=== PATIENT | female | born 1975 | race Hispanic/Latino ===

== ENCOUNTER → 2023-09-10 | Outpatient (CLI) | payer OTHER | END | disposition home or self-care (01) | LOC: SHCH 10:00 | PROVIDERS: ATTEND Internal Medicine Cardiovascular Disease | DX: R01.1 Cardiac murmur, unspecified (principal) | CPT/HCPCS: 93306 ==

== ENCOUNTER 2024-04-06 10:15 | Observation (INO) | payer OTHER ==
[~2024-04-06] VITALS: Ht 157.5 cm; Wt 91.6 kg
[2024-04-06 11:15] VITALS: BP 136/78; PULSE 65; RESP 16
[2024-04-06 11:21] LABS: CREATININE 0.7 mg/dL (0.5-1.0)
[2024-04-06 11:28] LABS: HEMATOCRIT 37.3 % (36-48); MEAN CORPUSCULAR HEMOGLOBIN 30.4 pg (27.0-33.0); MEAN CORPUSCULAR HGB CONC 34.6 g/dL (32.0-36.0); RED BLOOD CELL COUNT(AUTO) 4.24 MIL/uL (4.00-5.50); RED CELL DISTRIBUTION WIDTH 12.3 % (11.0-15.5); WHITE BLOOD COUNT (AUTO) 6.8 K/uL (4.8-10.8)
[2024-04-06] MEDS ORDERED: MAGNESIUM HYDROXIDE 30 ML/UDCUP PO PRN (12:30)
[2024-04-06] MEDS ORDERED: ACETAMINOPHEN 325 MG TAB PO ONE (12:30)
[2024-04-06] MEDS ORDERED: ACETAMINOPHEN WITH CODEINE 1 TAB TAB PO PRN (12:30)
[2024-04-06] MEDS ORDERED: MAG/ALUM/SIMETH 30 ML UDCUP PO PRN (12:30)
[2024-04-06] MEDS ORDERED: ACETAMINOPHEN 325 MG TAB PO PRN (13:00)
[2024-04-06] MEDS: NS-20 MEQ KCL 1000ML 1,000 ML IV SCH (13:47)
[2024-04-06 16:00] VITALS: BP 130/88; PULSE 67; RESP 16
[2024-04-06 19:45] VITALS: O2SAT 96
[2024-04-06] MEDS: ACETAMINOPHEN WITH CODEINE 1 TAB TAB PO PRN (19:45)
[2024-04-06 20:00] VITALS: BP 135/70; PULSE 56; RESP 20
[2024-04-07] VITALS (26 sets, daily range): BP systolic 94–134; BP diastolic 51–76; PULSE 58–89; RESP 13–20; O2SAT 96
[2024-04-07 05:07] LABS: BASOPHILS # (AUTO) 0.02 K/uL (0.00-0.20); BASOPHILS % (AUTO) 0.3 % (0.0-5.0); EOSINOPHILS # (AUTO) 0.32 K/uL (0.00-0.70); EOSINOPHILS % (AUTO) 4.7 % (0.0-8.0); HEMATOCRIT 35.2 % (36-48); IMMATURE GRANULOCYTE ABSOLUTE 0.05 K/uL (0-1); LYMPHOCYTES # (AUTO) 3.2 K/uL (1.0-4.8); LYMPHOCYTES % (AUTO) 46.6 % (21.0-51.0); MEAN CORPUSCULAR HEMOGLOBIN 31.3 pg (27.0-33.0); MEAN CORPUSCULAR HGB CONC 34.1 g/dL (32.0-36.0); MEAN CORPUSCULAR VOLUME 91.9 fL (79-99); MONOCYTES # (AUTO) 0.4 K/uL (0.1-1.0); MONOCYTES % (AUTO) 6.3 % (3.0-13.0); NEUTROPHILS # (AUTO) 2.8 K/uL (1.8-7.7); NEUTROPHILS % (AUTO) 41.4 % (40.0-77.0); PLATELET COUNT (AUTO) 259 K/uL (130-400); RED BLOOD CELL COUNT(AUTO) 3.83 MIL/uL (4.00-5.50); RED CELL DISTRIBUTION WIDTH 12.3 % (11.0-15.5); WHITE BLOOD COUNT (AUTO) 6.8 K/uL (4.8-10.8)
[2024-04-07 05:19] LABS: CREATININE 0.7 mg/dL (0.5-1.0); POTASSIUM 3.9 mmol/L (3.5-5.1)
[2024-04-07] MEDS ORDERED: BUPIVACAINE/PF 0.5% 30ML VIAL ONE (08:06)
[2024-04-07] MEDS: CEFAZOLIN SODIUM 2 GM VIAL IVPB ONE (08:12)
[2024-04-07] MEDS: CEFAZOLIN SODIUM 2 GM VIAL ONE (08:12)
[2024-04-07] MEDS ORDERED: SUCCINYLCHOLINE CHLORIDE 20 MG/ML 10 ML VIAL ONE (08:49)
[2024-04-07] MEDS ORDERED: LIDOCAINE PF 100MG/5ML (2%) SYRINGE 5ML ONE ×2 (08:49→08:54)
[2024-04-07] MEDS ORDERED: MIDAZOLAM HCL 1 MG/ML 2ML VIAL ONE (08:50)
[2024-04-07] MEDS ORDERED: NEOSTIGMINE METHYLSULFATE 1MG/ML IV ONE (08:50)
[2024-04-07] MEDS ORDERED: GLYCOPYRROLATE 0.2 MG/ML 5 ML VIAL ONE (08:50)
[2024-04-07] MEDS ORDERED: PROPOFOL 10 MG/ML 20ML VIAL IV ONE (08:50)
[2024-04-07] MEDS ORDERED: ONDANSETRON 4MG INJ ONE (08:51)
[2024-04-07] MEDS ORDERED: ROCURONIUM BROMIDE 10MG/1ML 5ML VL ONE (08:51)
[2024-04-07] MEDS ORDERED: FENTANYL CITRATE PF 50 MCG/1 ML 2ML VIAL ONE ×2 (08:53→11:01)
[2024-04-07] MEDS ORDERED: EPHEDRINE SULFATE 50 MG/ML AMPULE ONE (09:05)
[2024-04-07] MEDS ORDERED: KETOROLAC 30MG VIAL (30MG/ML) ONE (10:24)
[2024-04-07] MEDS ORDERED: METOCLOPRAMIDE 10 MG/2 ML VIAL ONE (10:41)
[2024-04-07] MEDS: BUPIVACAINE/PF 0.5% 30ML VIAL INJ ONE (10:48)
[2024-04-07] MEDS ORDERED: CEFAZOLIN SODIUM 2 GM VIAL IVPB SCH (11:00)
[2024-04-07] MEDS ORDERED: KCL 20 MEQ ERTAB PO PRN (11:00)
[2024-04-07] MEDS ORDERED: POTASSIUM CHLORIDE 10% ELIXIR 20 MEQ/15 ML UDCUP PO PRN (11:00)
[2024-04-07] MEDS ORDERED: DiphenhydrAMINE HCL 50 MG/ML VIAL IVP PRN (11:00)
[2024-04-07] MEDS ORDERED: CALCIUM CARB 500MG PO PRN (11:00)
[2024-04-07] MEDS ORDERED: TRAMADOL HCL 50 MG TABLET PO PRN (11:00)
[2024-04-07] MEDS ORDERED: POTASSIUM CHLORIDE 20MEQ/100ML 100 ML IV PRN (11:00)
[2024-04-07] MEDS ORDERED: DIPHENHYDRAMINE HCL 25 MG CAPSULE PO PRN (11:00)
[2024-04-07] MEDS: 0.9%NACL 1000ML 1,000 ML IV SCH (11:00)
[2024-04-07] MEDS ORDERED: HYDROCODONE/ACETAMINOPHEN 5/325 MG TAB PO PRN (11:00)
[2024-04-07] MEDS ORDERED: FERROUS FUMARATE 324 MG TABLET PO PRN (11:00)
[2024-04-07] MEDS: PSYLLIUM SEED 1 EACH PACKET PO SCH (12:00)
[2024-04-07] MEDS: KETOROLAC 15MG/ML VIAL (15MG/ML) IV PRN (13:30)
[2024-04-07] MEDS ORDERED: HYDR-4060 PO (14:59)
[2024-04-07] MEDS: CEFAZOLIN SODIUM 2 GM VIAL IVPB SCH (17:01)
[2024-04-08] MEDS ORDERED: POLYETHYLENE GLYCOL 3350 17 GM POWD.PACK PO SCH (09:00)
[2024-04-09] MEDS ORDERED: BISACODYL 5 MG TABLET.DR PO PRN (11:00)
[2024-04-10] MEDS ORDERED: BISACODYL 10 MG SUPP.RECT RC PRN (11:00)
== END 2024-04-07 19:25 | disposition home or self-care (01) ==
LOC: EDH 10:15 → INTOOBSV 10:16 → EDHIP 10:16 → 4CH 11:15
PROVIDERS: ADMIT Student in an Organized Health Care Education/Training Program; ATTEND Student in an Organized Health Care Education/Training Program
DX: S52.531A Colles' fracture of right radius, initial encounter for closed fracture (principal); E66.9 Obesity, unspecified; Z79.899 Other long term (current) drug therapy; V00.121A Fall from non-in-line roller-skates, initial encounter; Y93.51 Activity, roller skating (inline) and skateboarding; Y92.331 Roller skating rink as the place of occurrence of the external cause; Y99.8 Other external cause status
CPT/HCPCS: 80048 ×2; 85027; 85730; 36415 ×2; 93005; 25607; 64415; 96365; 96375; 84703; 85025; 73110; J3480 ×2; C1713 ×9; G0378 ×4; A4663; J7120; J3010 ×2; J0330; J3490 ×3; J2001 ×2; J2250; J2704; J2405; J2710; J0665 ×2; J2765; J1885; J0690 ×3; G0168; A4649; A4215; A4223; A4213; A4222; A4221; A4600